=== PATIENT | female | born 1930 | race Caucasian/White ===

== ENCOUNTER 2017-07-14 12:35 | Emergency (ER) | payer OTHER ==
[~2017-07-14] VITALS: Ht 149.9 cm; Wt 47.6 kg
[~2017-07-14 12:35] MED LIST: ANUSOL-HC25 MG RC; COLACE100 MG PO
[2017-07-14] MEDS ORDERED: SULINDAC200 MG (12:52)
[2017-07-14] MEDS ORDERED: GABAPENTIN100 MG (12:52)
[2017-07-14] MEDS ORDERED: SYNTHROID50 MCG (12:52)
[2017-07-14] MEDS ORDERED: SINGULAIR10 MG (12:53)
[2017-07-14] MEDS ORDERED: TRAMADOL HCL50 MG (12:53)
[2017-07-14] MEDS ORDERED: NEXIUM40 M1 (12:53)
[2017-07-14] MEDS ORDERED: COREG CR20 MG (12:53)
[2017-07-14] MEDS ORDERED: VITAMIN C500 M1 (12:54)
[2017-07-14] MEDS ORDERED: CALTRATE 600+D1 EAC1 (12:54)
[2017-07-14] MEDS ORDERED: VITAMIN E200 UNI2 (12:54)
[2017-07-14] MEDS ORDERED: VITAMIN D35000 UNI1 (12:55)
[2017-07-14] MEDS ORDERED: TRAMADOL HCL50 MG PO (15:41)
== END 2017-07-14 16:35 | disposition home or self-care (01) ==
LOC: ER 12:35
DX: S00.03XA Contusion of scalp, initial encounter (principal); S70.01XA Contusion of right hip, initial encounter; S19.9XXA Unspecified injury of neck, initial encounter; S49.91XA Unspecified injury of right shoulder and upper arm, initial encounter; W18.09XA Striking against other object with subsequent fall, initial encounter; Y93.89 Activity, other specified; Y92.018 Other place in single-family (private) house as the place of occurrence of the external cause; Y99.8 Other external cause status